=== PATIENT | male | born 2000 | race Caucasian/White ===

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

== ENCOUNTER 2025-05-16 22:18 | Emergency (ER) | payer BC, MEDICAID ==
[2025-05-16 23:01] VITALS: BP 133/86; PULSE 98
[2025-05-16 23:17] LABS: BASOPHILS ABSOLUTE AUTO 0.04 K/uL (0.00-0.10); BASOPHILS PERCENT AUTO 0.6 % (0.1-1.3); EOSINOPHILS ABSOLUTE AUTO 0.07 K/uL (0.00-0.40); EOSINOPHILS PERCENT AUTO 1.0 % (0.0-5.4); IMMATURE GRAN PERCENT AUTO 0.1 % (0.0-0.7); LYMPHOCYTES ABSOLUTE AUTO 0.96 K/uL (0.8-3.3); LYMPHOCYTES PERCENT AUTO 13.5 % (11.4-47.7); MONOCYTES ABSOLUTE AUTO 0.59 K/uL (0.20-0.90); MONOCYTES PERCENT AUTO 8.3 % (3.3-12.6); NEUTROPHILS ABSOLUTE AUTO 5.44 K/uL (1.0-7.6); NEUTROPHILS PERCENT AUTO 76.5 % (40.0-78.1); PLATELET COUNT,PLT 221 K/uL (130-375); RED BLOOD CELL COUNT 5.06 M/uL (4.14-5.76); WHITE BLOOD CELL COUNT,WBC 7.1 K/uL (3.2-11.0)
[2025-05-16 23:19] LABS: IMMATURE GRAN ABSOLUTE AUTO 0.01 K/uL (0.00-0.23)
[2025-05-16 23:38] LABS: A/G RATIO 1.0 (1.2-2.2); ALANINE AMINOTRANSFERASE,ALT 96 U/L (12-78); ASPARTATE AMNIOTRANSFERASE,AST 41 U/L (15-37); BILIRUBIN TOTAL 0.4 mg/dL (0.2-1.0); BLOOD UREA NITROGEN,BUN 19 mg/dL (7-18); CARBON DIOXIDE,CO2 29 mmol/L (21-32); CHLORIDE,CL 100 mmol/L (100-108); CREATININE 1.1 mg/dL (0.8-1.3); EST CRCL DRUG DOSING (CG) 126.04 mL/min; ESTIMATED GFR 96 mL/min (>60); GLUCOSE RANDOM 140 mg/dL (74-106); POTASSIUM,K 3.9 mmol/L (3.6-5.2); PROTEIN TOTAL,TP 7.6 g/dL (6.4-8.2); SODIUM,NA 139 mmol/L (140-148)
[2025-05-16 23:44] LABS: LACTIC ACID 0.6 mmol/L (0.4-2.0)
[2025-05-17] MEDS: Iopamidol 612 MG/ML 100 ML Bottle IV SCH (00:56)
[2025-05-17] MEDS: Sodium Chloride 0.9% 10 ML Syringe FLUSH PRN (00:56)
[2025-05-17 01:03] LABS: APPEARANCE,URINE CLEAR (CLEAR); GLUCOSE,URINE NEGATIVE (NEGATIVE); OCCULT BLOOD,URINE NEGATIVE (NEGATIVE)
[2025-05-17 01:19] LABS: SQUAMOUS EPITHELIAL CELLS,UR RARE /HPF; UROTHELIAL CELLS,URINE NOT SEEN /HPF
== END 2025-05-17 01:58 | disposition home or self-care (01) ==
LOC: JP.ED 22:18
DX: R10.9 Unspecified abdominal pain (principal); Z88.0 Allergy status to penicillin; Z79.899 Other long term (current) drug therapy
CPT/HCPCS: 36415; 74177; 80053; 81001; 83605; 83690; 85025; 86140; 99284; Q9967